=== PATIENT | female | born 1960 | race Caucasian/White ===

== ENCOUNTER 2020-06-26 14:32 | Emergency (ER) | payer OTHER, SELFPAY ==
--- NOTE | ~2020-06-26 | CT_ITS ---
EXAMINATION: CT abdomen pelvis w con DATE: 06/26/2020 16:39 INDICATION: Abdominal pain TECHNIQUE: Computed tomography (CT) of the abdomen and pelvis was performed with 100 mL Omnipaque-350 intravenous contrast. Automated exposure control and iterative reconstruction technique were employe d. The dose-length product was 385.50 mGy-cm. COMPARISON: None FINDINGS: Lung bases are clear. Heart size is normal. No pericardial or pleural effusion. Liver, gallbladder, s pleen, pancreas, bilateral adrenal glands and kidneys are normal. Normal appendix. Fluid scattered th roughout normal caliber large and small bowel consistent with diarrhea. Bladder, anteverted uterus an d bilateral adnexa are normal. Trace amount of likely physiologic free fluid in the pelvis. No pathol ogically enlarged abdominal or pelvic lymphadenopathy. Mild thoracolumbar dextrocurvature with chroni c L1 compression fracture with 20% left-sided vertebral body height loss. Moderate right-sided predom inant disc height loss with degenerative endplate changes at L4-L5. IMPRESSION: 1. Nondilated loops of fluid-filled large and small bowel consistent with diarrhea. Correlate clinica lly for gastroenteritis. Reviewed, dictated and finalized at location A. IMPRESSION: 1. Nondilated loops of fluid-filled large and small bowel consistent with diarr hea. Correlate clinically for gastroenteritis.
[2020-06-26 14:57] VITALS: BP 99/60; RESP 16; TEMP 36.8; O2SAT 97
[2020-06-26 15:08] LABS: Basophils Percent Auto 0.4 % (0.2-1.2); Eosinophils Percent Auto 0.4 % (0-4.4); Hematocrit 42.1 % (37.0-47.0); Hemoglobin 14.3 g/dL (12.0-15.0); Immature Granulocyte Absolute 0.02 K/mm3 (0.00-0.031); Immature Granulocyte Percent A 0.4 % (0-0.5); Lymphocytes Absolute Auto 0.78 K/mm3 (0.9-3.2); Lymphocytes Percent Auto 17.3 % (18.3-44.2); Mean Corpuscular Hemoglobin 32.1 pg (26-34); Mean Corpuscular Volume 94.6 fl (80-100); Monocytes Absolute Auto 0.4 K/mm3 (0.1-0.6); Monocytes Percent Auto 9.1 % (2.6-8.5); Neutrophils Absolute Auto 3.3 K/mm3 (1.3-6.7); Neutrophils Percent Auto 72.4 % (45.5-73.1); Platelet Count Result 242 k/mm3 (150-375); Red Blood Count 4.45 M/mm3 (4.2-5.4); Red Cell Distribution Width 12.7 % (11.5-14.5); White Blood Count 4.5 K/mm3 (4.5-10.0)
[2020-06-26 15:21] LABS: Alanine Aminotransferase 25 U/L (4-35); Albumin Level 4.4 g/dL (3.5-5.1); Alkaline Phosphatase 73 U/L (38-126); Anion Gap 5 mmol/L (8-16); Aspartate Amino Transferase 37 U/L (14-36); Bilirubin,Total 0.5 mg/dL (0.2-1.3); Blood Urea Nitrogen 12 mg/dL (7-17); Calcium 8.9 mg/dL (8.4-10.2); Carbon Dioxide 31 mmol/L (22-30); Chloride 101 mmol/L (98-107); Estimated CRCL calculation 58 ml/min; Estimated Glomerular Filt Rate > 60; Glucose 105 mg/dL (65-105); Lipase 51 U/L (23-300); Sodium 137 mmol/L (137-145)
[2020-06-26 15:35] LABS: Add Urine Microscopic? YES; Appearance Urine Clear (Clear); Bilirubin Urine Negative (Negative); Blood Urine Negative (Negative); Color Urine Yellow (Yellow); Glucose Urine UA Negative (Negative); Ketones Urine 1+ mg/dL (Negative); Leukocyte Esterase Ur Negative LEU/UL (Negative); Mucus Urine Rare /lpf; Nitrate Urine Negative (Negative); Protein Urine 1+ mg/dL (Negative); Specific Grav Ur 1.019 (1.001-1.035); Squamous Epithelial Cell Urine Rare /hpf (Few); Urobilinogen Urine Negative mg/dL (<2.0)
--- NOTE | 2020-06-26 15:50 | ED.ABDPAIN ---
HPI - Abdominal Pain General Chief Complaint: Nausea/Vomiting/Diarrhea Stated Complaint: N/V/D x3 days Time Seen by Provider: 06/26/20 15:45 Source: RN notes reviewed History of Present Illness HPI narrative: Patient presents emergency room from home for nausea vomiting diarrhea. Patient states symptoms again 48 hours ago. States she is had numerous episodes of nausea and vomiting as well as diarrhea. Patient states that she is that the abdomen is diffusely painful divided as cramping states that she did have a fever up to 101.5 yesterday but denies any fever today she states she did take Advil earlier today with no relief she denies any chest pain shortness of breath or any other symptoms Related Data Allergies Allergy/AdvReac Type Severity Reaction Status Date / Time cephalexin Allergy Unknown Verified 04/30/18 14:25 erythromycin base Allergy Unknown GI UPSET Verified 04/30/18 14:25 Review of Systems Review of Systems: Narrative: Gen.: Denies fevers or chills ENT: Denies congestion Respiratory: Denies shortness of breath or cough CV: Denies chest pain or palpitations GI: See HPI denies burning, urgency, frequency or hematuria Musculoskeletal: Denies back pain or muscle pain Neuro: Denies numbness, tingling, weakness or focal weakness Skin: Denies rash Except as documented, all other systems reviewed and negative PMFSH Past Medical History Medical History (Updated 06/26/20 @ 17:44 by Remy Young DO) Patient denies significant medical history Social History Social History (Updated 06/26/20 @ 15:52 by Remy Young DO) Smoking status: Never smoker Gender identity (if verbalized by the patient): Female Exam Narrative: Exam Narrative: APPEARANCE: No acute distress, nontoxic, resting in bed HEENT: Normocephalic, atraumatic, OMM RESPIRATORY: No respiratory distress, clear to auscultation bilaterally with no rhonchi wheezing or rales CARDIOVASCULAR: RRR s murmur ABDOMINAL: Soft nondistended diffusely tender to palpation no rebound or guarding MUSCULOSKELETAl: Moves all extremities. No clubbing, cyanosis or edema. NEURO: Awake and alert. Following commands, speech normal, no focal deficits SKIN:: Warm, dry. Normal Color PSYCHIATRIC: Normal affect/mood Course Course Emergency Course: Patient states that they are feeling much better at this time. States abdominal pain has resolved. Repeat abdominal exam shows the patient's abdomen to be soft and nontender. Discussed with patient results of workup and diagnosis. Discussed need for follow-up with primary care physician, reasons to return to the emergency department in proper use of medication. Patient understands and agrees to current treatment plan patient is able to eat and drink in the ED with no emesis. The patient is requesting a Covid swab Vital Signs Vital signs: Vital Signs Temperature 98.3 F 06/26/20 14:57 Respiratory Rate 16 06/26/20 14:57 Blood Pressure 99/60 L 06/26/20 14:57 Pulse Oximetry 97 06/26/20 14:57 Temperature 98.7 F 06/26/20 15:52 Pulse Rate 90 06/26/20 17:38 Respiratory Rate 20 06/26/20 17:38 Blood Pressure 105/66 06/26/20 17:38 Pulse Oximetry 100 06/26/20 17:38 MDM - Abdominal Pain MDM Narrative Medical decision making narrative: Patient's abdomen is soft without significant pain or signs of surgical abdomen on serial exams. Lab and x-ray evaluations are reviewed and patient is felt to be a reasonable candidate for outpatient management. Patient was instructed as to limitations of x-ray and laboratory evaluation and encouraged to return to ED or primary physician for repeat exam in 12 hours if continued or worsening pain Lab Data Result diagrams: 06/26/20 15:01 06/26/20 15:01 Labs: Lab Results 06/26/20 06/26/20 06/26/20 Range/Units 15:01 15:01 15:13 WBC 4.5 (4.5-10.0) K/mm3 RBC 4.45 (4.2-5.4) M/mm3 Hgb 14.3 (12.0-15.0) g/dL Hct 42.1 (37
[2020-06-26 15:52] VITALS: BP 119/63; PULSE 87; RESP 20; TEMP 37.1; O2SAT 100
[2020-06-26 16:02] VITALS: BP 107/66; PULSE 89; RESP 21; O2SAT 100
[2020-06-26] MEDS: ONDANSETRON INJ 4 MG/2 ML VIAL IV PUSH (16:03)
[2020-06-26] MEDS: SODIUM CHLORIDE 0.9% IV 1,000 ML 999 ML IV CONT (16:03)
[2020-06-26 17:38] VITALS: BP 105/66; PULSE 90; RESP 20; O2SAT 100
[2020-06-26 17:53] VITALS: BP 106/63; PULSE 78; RESP 15; O2SAT 98
[2020-06-27 16:56] LABS: SARS-CoV-2 RNA PCR Negative
== END 2020-06-26 17:55 | disposition home or self-care (01) ==
PROVIDERS: Emergency Provider Emergency Medicine; PCP Internal Medicine
DX: R11.2 Nausea with vomiting, unspecified (principal); R19.7 Diarrhea, unspecified; R10.9 Unspecified abdominal pain; Z20.822 Contact with and (suspected) exposure to COVID-19
CPT/HCPCS: 36415; 74177; 80053; 81001; 83690; 85025; 96361; 96365; 96374; 99284; C9803; J0131; J2405; J7030; Q9967; U0003; U0005